=== PATIENT | male | born 1980 | race American Indian/Alaskan Native ===

== ENCOUNTER 2018-01-22 19:28 | Emergency (ER) | payer OTHER ==
[2018-01-22 21:45] VITALS: PULSE 79; RESP 16; TEMP 98.4; O2SAT 98
--- NOTE | 2018-01-22 23:02 | ED PDOC ---
Upper Extremity Pain/Injury Time Seen by Provider: 01/22/18 22:10 Chief Complaint (Nursing): Upper Extremity Problem/Injury History Per: Patient History/Exam Limitations: no limitations Onset/Duration Of Symptoms: Days Additional Complaint(s): 37 year old male with no significant PMH presents to the ED complaining of right shoulder pain x 2 weeks. Pt states pain began after a backpacking trip with friends where he carried a heavy bag for a few days. Pain has not worsened or improved. He describes the pain as sharp, located in the right deltoid without radiation, and only present with shoulder abduction. Pt has had pain in the right shoulder before but has never followed up with Orthopedics. Pt has not taken any medication for pain. Denies fall, erythema, bruising, fever, chills, rash, numbness, paresthesias, chest pain, shortness of breath, neck pain, headache, back pain. Of note, patient denies diagnosis of hypertension but states his mother who is a nurse has been checking his pressure at home and it has been high. Admits to high salt diet and lack of exercise. Past Medical History Reviewed: Historical Data, Nursing Documentation, Vital Signs Vital Signs: Last Vital Signs Temp 98.4 F 01/22/18 21:42 Pulse 79 01/22/18 21:42 Resp 16 01/22/18 21:42 BP 165/112 H 01/22/18 21:42 Pulse Ox 98 01/22/18 21:42 - Family History Family History: States: Unknown Family Hx - Home Medications Home Medications: Ambulatory Orders Medication Instructions Recorded Cyclobenzaprine [Cyclobenzaprine 10 mg PO Q8H PRN #12 tab 01/22/18 HCl] - Allergies Allergies/Adverse Reactions: Allergies Allergy/AdvReac Type Severity Reaction Status Date / Time aspirin Allergy RASH Verified 01/22/18 21:41 Review of Systems ROS Statement: Except As Marked, All Systems Reviewed And Found Negative Constitutional: Negative for: Fever, Chills Eyes: Negative for: Vision Change Cardiovascular: Negative for: Chest Pain, Palpitations, Light Headedness Respiratory: Negative for: Cough, Shortness of Breath Gastrointestinal: Negative for: Nausea, Vomiting, Abdominal Pain Musculoskeletal: Positive for: Shoulder Pain (right). Negative for: Neck Pain, Arm Pain, Back Pain, Hand Pain Skin: Negative for: Rash, Lesions, Bruising Neurological: Negative for: Weakness, Numbness (paresthesias), Headache, Dizziness Physical Exam - Reviewed Nursing Documentation Reviewed: Yes Vital Signs Reviewed: Yes - Physical Exam Appears: Positive for: Well, Non-toxic, No Acute Distress Head Exam: Positive for: ATRAUMATIC, NORMAL INSPECTION, NORMOCEPHALIC Skin: Positive for: Normal Color, Warm, DRY Eye Exam: Positive for: EOMI, Normal appearance, PERRL ENT: Positive for: Normal ENT Inspection Neck: Positive for: Normal, Painless ROM Cardiovascular/Chest: Positive for: Regular Rate, Rhythm Respiratory: Positive for: CNT, Normal Breath Sounds Pulses-Radial (L): 2+ Pulses-Radial (R): 2+ Back: Positive for: Normal Inspection. Negative for: Vertebral Tenderness, Muscle Spasm Extremity: Positive for: Tenderness (mild over origin of lateral deltoid muscle ), Capillary Refill (<2s). Negative for: Normal ROM (decreased right shoulder abduction secondary to pain; otherwise normal ROM bilaterally), Deformity, Swelling, Other (erythema, bruising) Neurologic/Psych: Positive for: Alert, Oriented, Gait (steady). Negative for: Motor/Sensory Deficits - ECG O2 Sat by Pulse Oximetry: 98 Medical Decision Making Medical Decision Making: Initial Plan: * 400mg Ibuprofen secondary to nosebleeds from ASA * 10mg Flexeril * Recheck BP before discharge, asymptomatic * Reassess and disposition On recheck, patient's BP has dropped to <150/100, advised to followup with primary doctor for BP check, decrease salt in diet, and increase exercise. Advised not to take flexeril before driving or operating heavy machinery. Possible differentials for pain discussed with patient, advised to follow up with orthopedic if pain persists despite medications. Patient agrees and understands. Patient stable for discharge. Impression: Muscle spasm v. muscle tear Plan: * ibuprofen/tylenol, flexeril for pain * ice/heat * followup with orthopedics if pain persists for outpatient MRI * followup with primary doctor for recheck BP * return to ER for new/worsening symptoms Disposition - Clinical Impression Clinical Impression: Shoulder pain - Patient ED Disposition Is Patient to be Admitted: No Counseled Patient/Family Regarding: Diagnosis, Need For Followup, Rx Given - Disposition Referrals: Jonathon Haas MD [Medical Doctor] - Disposition: Routine/Home Disposition Time: 23:00 Condition: IMPROVED Additional Instructions: Take flexeril every 8 hours as needed for pain, do not take before work or driving Take ibuprofen every 6 hours with food as needed for pain Followup with orthopedics within 2 days Followup with primary within 2 days Return to ED if symptoms worsen or persist Prescriptions: Cyclobenzaprine [Cyclobenzaprine HCl] 10 mg PO Q8H PRN #12 tab PRN Reason: Pain, Moderate (4-7) Instructions: Muscle Spasms (DC) Forms: [facility] [facility] ([place]e), [facility] ED School/Work Excuse
--- NOTE | 2018-01-23 08:32 | RAD ---
Date of service: 01/22/2018 PROCEDURE: Radiographs of the Right Shoulder HISTORY: right shoulder pain COMPARISON: No prior. FINDINGS: BONES: Normal. No fracture. JOINTS: Normal. Glenohumeral and acromioclavicular joints preserved. No osteoarthritis. SOFT TISSUES: Normal. OTHER FINDINGS: None. IMPRESSION: Normal radiographs of the right shoulder.
[2018-01-23 10:33] VITALS: BP 147/99
== END 2018-01-22 23:48 | disposition home or self-care (01) ==
LOC: H.ER 19:28
DX: M25.511 Pain in right shoulder (principal)